=== PATIENT | male | born 1985 | race Two or more races ===

== ENCOUNTER 2024-02-12 08:00 | Day surgery (SDC) | payer BC, MEDICAID, SELFPAY ==
[2024-02-11 10:30] VITALS: BMI 33.8
[2024-02-11 11:38] LABS: Basophils % (Auto) 1 % (0-2.5); Eosinophils # (Auto) 0.1 Thou/mm3 (0.0-0.5); Eosinophils % (Auto) 2 % (0-10); Hematocrit 45.9 % (41.0-53.0); Hemoglobin 15.8 g/dL (13.5-16.0); Immature Granulocytes % (Auto) 0 % (0-0); Lymphocytes # (Auto) 2.2 Thou/mm3 (1.0-4.8); Lymphocytes % (Auto) 36 % (10-50); Mean Corpuscular HGB Conc 34.4 g/dl (31.0-37.0); Mean Corpuscular Hemoglobin 28.9 pg (25.0-35.0); Mean Corpuscular Volume 84 fL (80-100); Monocytes # (Auto) 0.4 Thou/mm3 (0.0-0.8); Monocytes % (Auto) 7 % (0-12); Neutrophils # (Auto) 3.4 Thou/mm3 (1.8-7.7); Neutrophils % (Auto) 55 % (37-80); Nucleated Red Blood Cell % 0 /100 WBC (0); Platelet Count 238 Thou/mm3 (140-440); RDW Standard Deviation 38.9 fL (35.1-43.9); Red Blood Count 5.46 Miln/mm3 (4.50-5.90); White Blood Count 6.1 Thou/mm3 (3.8-10.6)
[2024-02-11 11:46] LABS: Anion Gap 6 (7-16); BUN/Creatinine Ratio 12 Ratio (12-20); Blood Urea Nitrogen 12 mg/dL (9-23); Calcium 9.8 mg/dL (8.3-10.6); Carbon Dioxide 30.5 mMol/L (20.0-31.0); Chloride 103 mMol/L (98-107); Estimated Creatinine Clearance 111.8 mL/min (>60); Glucose 98 mg/dL (74-106); Osmolality,Calculated 277 (275-295); Potassium 4.1 mMol/L (3.4-5.1); Sodium 139 mMol/L (136-145); eGFR > 60 See Note
[2024-02-12] VITALS (8 sets, daily range): BP systolic 112–148; BP diastolic 63–99; PULSE 64–101; RESP 12–20; TEMP 36.2–36.6; O2SAT 94–100; BMI 33.3
--- NOTE | 2024-02-12 13:30 | SUR.PHASEI ---
1330: Pt. arrived with oral airway in place, vitals stable, breathing unlabored, no signs of distress, dressing to lower ABD CDI, no active bleed noted, report received from Olimpia MEDINA and Dolores DE PAZ.
[2024-02-12] MEDS: ALBUTEROL/IPRATROPIUM (Duoneb) RT SOL 3 ML NEBU INH (13:35)
--- NOTE | 2024-02-12 13:50 | PD.SUROPNT ---
Date of Procedure 02/12/24 Pre Op Diagnosis Left inguinal hernia Post Op Diagnosis Indirect left inguinal hernia Procedure Left inguinal hernia repair with mesh Findings Patient was noted to have indirect left inguinal hernia sac Procedure Description Patient brought into the operating room in supine position. After administration of general endotracheal anesthesia, patient's right groin was shaved, prepped and draped in standard surgical manner. The right inguinal crease was anesthetized with half percent Marcaine. An approximately 8 cm incision was made and dissection was carried to subcutaneous tissue. The Linda's fascia was divided and the external oblique aponeurosis was opened towards the external ring. The hernia sac and the spermatic cord structures were from the posterior aspect of the external oblique aponeurosis at the level of pubic tubercle. The hernia sac was then meticulously dissected off the spermatic cord structures at the level of internal ring. Patient was noted to have indirect left inguinal hernia sac. The hernia sac was then ligated at the level of internal ring. The floor of inguinal canal was then reconstructed with ultra Pro proceed mesh. The mesh was secured with running 2-0 Prolene suture. The mesh secured medially to the pubic tubercle, superiorly into the conjoin tendon, inferiorly and to the shelving edge of inguinal ligament, the mesh was placed around the cord structures and tacked under the external oblique aponeurosis laterally. The area was copiously and thoroughly washed and irrigated, all the fluids were suctioned and the suction fluid returned clear. Hemostasis was adequate and satisfactory. External oblique aponeurosis was closed with running 2-0 Vicryl suture, and Linda's fascia was closed with interrupted suture using 3-0 Vicryl. The incision was closed with 4-0 Monocryl in subcutaneous fashion. Instruments, needles and sponge counts were reported to be correct ?2. Patient tolerated the procedure well. He was extubated, breathing spontaneously and without difficulty and was transferred to postanesthesia care in stable condition. Anesthesia GETA and local Pathology / specimen Other (Hernia sac) Estimated Blood Loss 10 Condition Stable Disposition PACU Surgeon Wilver Agrawal MD Surgical Staff Operation Date: 02/12/24 11:00 Case Staff CHIEF KNOWLEDGE OFFICER: Dolores Ortega RN First Assistant: Maggie Rocha
--- NOTE | 2024-02-12 14:30 | SUR.PHASEII ---
1430: Pt. AAOx4, vitals stable, breathing unlabored, no complaint of pain or nausea, dressing to lower ABD CDI, no active bleed noted, ABD Binder in place, pt. tolerated sips of water well, pt. ambulated to wheelchair with steady gait and no assist, no complications. Gave discharge instructions to the pt. and her ride, both verbalized understanding and had no further questions. Pt. left with all personal belongings.
== END 2024-02-12 14:30 | disposition home or self-care (01) ==
PROVIDERS: PCP Family Medicine; Referring Provider Surgery; Visit Provider Surgery
PROC: (CPT 49505; principal; 2024-02-12 10:45)
DX: K40.90 Unilateral inguinal hernia, without obstruction or gangrene, not specified as recurrent (principal)
CPT/HCPCS: 49505; 36415; 80048; 85025; A4217; A4649; A9270; C1781; J0690; J1100; J2250; J2405; J2704; J3010; J3490